=== PATIENT | female | born 1960 | race Caucasian/White ===

== ENCOUNTER 2017-01-01 13:00 | Inpatient (IN) | payer OTHER ==
[~2017-01-01] VITALS: Ht 160 cm; Wt 51.7 kg
--- NOTE | ~2017-01-01 | PN ---
Unit #: [id number] #: [id number] Patient: ANA MARÍA SUN [id number] [facility] [address] [place] [address] [id number] MR#: [id number] NAME: ANA MARÍA SUN ROOM: [facility]3 Age: 56 Sex: F Admission Date: 01/01/2017 : 1960 Attending Physician: Gabrielle Mcnulty M.D. Admitting Physician: Gabrielle Mcnulty M.D. Primary Care Physician: Primary Care Physician Vanesa MAR NOTES DATE OF SERVICE 01/16/2017 DISCUSSION Ms. Sun is a 56-year-old white female with mood disorder and psychosis who was seen today. Chart was reviewed and case was discussed with the staff. She remains anxious, withdrawn, disorganized, unkempt, disheveled, and rather seclusive to herself. Meanwhile, she has been taking the medications and tolerating them fairly well with no reported side effects. MENTAL STATUS EXAMINATION Middle-aged white female who is casually dressed with fair personal hygiene, appears to be in no acute distress or discomfort. She was awake and alert with impaired attention and concentration. Her mood is anxious with congruent affect. Speech is slow and restricted in content. Her thought processes were disorganized with some looseness of associations and paranoid ideations. Her insight and judgment remain significantly impaired. TREATMENT PLAN 1. We will continue her on her current medications and treatment protocol. We will monitor her response to the medications (1) __. 2. We will continue to follow up. Dictated by... Sudha Mayfield/ofelia TD: 01/18/2017 10:38 JOB #: [id number] Unit #: [id number] #: [id number] Patient: ANA MARÍA SUN PROGRESS NOTES Page 1 of 1 X Gabrielle Mcnulty MD PROGRESS NOTE
--- NOTE | ~2017-01-01 | PN ---
Unit #: [id number] #: [id number] Patient: ANA MARÍA SUN [id number] [facility] [address] [place] [address] [id number] MR#: [id number] NAME: ANA MARÍA SUN ROOM: P256 Age: 56 Sex: F Admission Date: 01/01/2017 : 1960 Attending Physician: Gabrielle Mcnulty M.D. Admitting Physician: Gabrielle Mcnulty M.D. Primary Care Physician: Primary Care Physician Vanesa MAR NOTES DATE OF SERVICE: 01/02/2017 SUBJECTIVE Ms. Sun is a 56-year-old white female who was seen today and chart was reviewed, and case was discussed with the staff. She has been anxious, withdrawn, and rather seclusive to herself. Meanwhile, she has been cooperative with treatment recommendation and has been taking medications and tolerating them fairly well with no reported side effects. MENTAL STATUS EXAMINATION Middle-aged white female who was casually dressed with fair personal hygiene, appears to be in no acute distress or discomfort. She was awake and alert on interaction with intact orientation. Her mood was anxious with a congruent affect. Her speech was slow and goal directed. She denies any suicidal or homicidal ideations. Her insight and judgment remain slightly impaired. TREATMENT PLAN 1. We will continue on her current medications and treatment protocol. We will monitor her response to the medications and make further adjustments as needed. 2. We will continue to follow up. Dictated by... Sudha Mayfield/conrado TD: 01/04/2017 00:11 JOB #: [id number] EMILY PROGRESS NOTES Page 1 of 1 X Gabrielle Mcnulty MD PROGRESS NOTE
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
--- NOTE | ~2017-01-01 | PN ---
Unit #: [id number] #: [id number] Patient: ANA MARÍA SUN [id number] [facility] [address] [place] [address] [id number] I MR#: [id number] NAME: ANA MARÍA SUN ROOM: [facility]3 Age: 56 Sex: F Admission Date: 01/01/2017 : 1960 Attending Physician: Gabrielle Mcnulty M.D. Admitting Physician: Gabrielle Mcnulty M.D. Primary Care Physician: Primary Care Physician Vanesa MAR NOTES DATE 01/06/2017 DISCUSSION Ms. Sun is a 56-year-old white female with mood disorder and psychosis who was seen today and chart was reviewed and case was discussed with the staff. She has been anxious, withdrawn and rather seclusive to himself. Meanwhile, she has been cooperative with treatment recommendations and has been taking medications and tolerating them fairly well with no reported side effects. MENTAL STATUS EXAMINATION Middle-aged white female who was casually dressed with fair personal hygiene and appears to be in no acute distress or discomfort. She was awake and alert with impaired attention and concentration. Her mood was elated with expansive affect. Speech was fluent and tangential. Her thought processes were disorganized with some looseness of associations, flight of ideas, paranoid ideations and delusions of grandiosity. Her insight and judgement remains significantly impaired. TREATMENT PLAN 1. Patient remains in acute manic phase with sexually inappropriate behavior and has not been showing a therapeutic response to the medication and had a rough day yesterday and as such will recommend further adjusting her medication. Will also consider her to be a candidate for long-acting injectable antipsychotic. 2. Will continue to follow up. Dictated by... Sudha Mayfield/ольга TD: 01/06/2017 19:37 JOB #: [id number] Unit #: [id number] #: [id number] Patient: ANA MARÍA SUN ZAID NOTES Page 1 of 1 X Gabrielle Mcnulty MD PROGRESS NOTE
--- NOTE | ~2017-01-01 | PN ---
Unit #: [id number] #: [id number] Patient: ANA MARÍA SUN [id number] [facility] [address] [place] [address] [id number] I MR#: [id number] NAME: ANA MARÍA SUN ROOM: P253 Age: 56 Sex: F Admission Date: 01/01/2017 : 1960 Attending Physician: Gabrielle Mcnulty M.D. Admitting Physician: Gabrielle Mcnulty M.D. Primary Care Physician: Primary Care Physician Vanesa MAR NOTES SUBJECTIVE Ms. Sun is a 56-year-old white female who was seen today and chart was reviewed, and case was discussed with the staff. She has been anxious, withdrawn, and rather seclusive to herself. Meanwhile, she has been cooperative with treatment recommendation and has been taking medications and tolerating them fairly well with no reported side effects. MENTAL STATUS EXAMINATION Middle-aged white female who was casually dressed with fair personal hygiene, appears to be in no acute distress or discomfort. She was awake and alert on interaction with intact orientation. Her mood was anxious with a congruent affect. Her thought processes were disorganized with some looseness of associations and flight of ideas. Her insight and judgment remain slightly impaired. TREATMENT PLAN 1. We will continue on her current medications and treatment protocol. We will monitor her response to the medications and make further adjustments as needed. 2. We will continue to follow up. Dictated by... Sudha Mayfield/celinel TD: 01/04/2017 09:57 JOB #: [id number] EMILY MAR NOTES Page 1 of 1 X Gabrielle Mcnulty MD PROGRESS NOTE
--- NOTE | ~2017-01-01 | FU ---
[facility] Nutrition Therapy DATE: 01/13/17 Patient: ANA MARÍA SUN Physician: AFAIRF Address: [address] [place] [address] Room/Bed: [address], Zip: [place] [address] Admit Date: 01/01/17 Date of : [birth year] Height: 5 3 Weight: [phone] NUTRITION MONITORING/FOLLOW-UP: Reason: NUTRITION F/U FOR 2 NUTRITIONAL RISK POINTS- UNINTENTIONAL WEIGHT LOSS, CHEWING/SWALLOWING DIFFICULTIES Anthropometrics: HT: 63", WT: 114# (NO NEW WEIGHT), BMI: 20.2 Labs: NO NEW LABS Meds: INVEGA SUSTENNA, DESYREL, BUSPAR, PAXIL Assessment: PATIENT CONTINUES WITH CONFUSION, DELUSIONAL AND BIZARRE BEHAVIORS, AND SHE IS UNABLE TO CARRY ON ANY MEANINGFUL CONVERSATION. PATIENT'S URINE WAS POSITIVE FOR UTI AND SHE WAS STARTED ON BACTRIM. NURSING REPORTS CONSISTENTLY GOOD PO INTAKES. PATIENT IS ON A REGULAR DIET WITH NO CAFFEINE. THERE ARE NO SKIN OR GI ISSUES NOTED ATT. Dx: UNINTENTIONAL WEIGHT LOSS R/T CURRENT CONDITION, PSYCHOSIS AEB SELF-REPORTED WEIGHT LOSS AND DECREASED APPETITE, 2 NUTRITIONAL RISK POINTS - IMPROVED! NO C/O CHEWING/SWALLOWING DIFFICULTIES, GOOD APPETITE Intervention: REGULAR DIET, NO CAFFEINE, MEDS PER MD, PSYCH Monitoring, Evaluation and Goals: 1. ADEQUATE PO INTAKES >50% OF MEALS - GOAL MET 2. PREVENT, CORRECT MICRO/MACRO NUTRIENT DEFICIENCIES - ONGOING, NO NEW LABS! 3. WEIGHT; MAINTAIN CURRENT WEIGHT, PREVENT FURTHER LOSS- ONGOING, NO NEW WEIGHTS MONITOR: WEIGHTS, LABS, PO/FLUID INTAKES Recommendations: 1. CONTINUE REGULAR DIET WITH NO CAFFEINE AND OFFERING SNACKS BETWEEN MEALS 2. CONTINUE TO ENCOURAGE ADEQUATE PO AND FLUID INTAKES 3. OBTAIN NEW WEIGHT. NO NEW WEIGHT OBTAINED SINCE ADMIT! CONTINUE TO OBTAIN WEIGHTS ROUTINELY RD TO F/U PER PROTOCOL AND PRN R/T PATIENT NOT AT NUTRITIONAL RISK ATT Status: Respectfully, [facility] Therapy DATE: 01/13/17 Patient: ANA MARÍA SUN Physician: LYNDSEYF Address: [address] [place] [address] Room/Bed: [address], Zip: [place] [address] Admit Date: 01/01/17 Date of : [birth year] Height: 5 3 Weight: [id number], LD [facility] cc: client file
--- NOTE | ~2017-01-01 | PA ---
Unit #: [id number] #: [id number] Patient: ANA MARÍA COMER [id number] [facility] [address] [place] [address] [id number] I MR#: [id number] NAME: ANA MARÍA COMER ROOM: 79 Age: 56 Sex: F Admission Date: 01/01/2017 : 1960 Date of Assessment: 01/01/2017 Attending Physician: Gabrielle Mcnulty M.D. Admitting Physician: Gabrielle Mcnulty M.D. Primary Care Physician: Primary Care Physician No PSYCHIATRIC ASSESSMENT DATE OF SERVICE 01/01/2017. IDENTIFYING DATA Ms. Comer is a 56-year-old single white female, who is a resident of [place], [place], and was self-referred to the hospital and was accompanied by her children. CHIEF COMPLAINT "I'm just not feeling good, I feel lonely and scared and scared to ." HISTORY OF PRESENT ILLNESS Ms. Comer is a 56-year-old white female, who was brought to the hospital by her children with increasing depression and feeling lonely and scared, "I don't know, I'm scared of everything." The patient's son and daughter stated that she has had a change in mental status and we took her to the hospital last Tuesday and they checked her out for UTI and she also has had some falls lately before we took her to the hospital. Upon a month ago, she fell and had a concussion and a few days later, she went to her neighbor's half dressed and she had an empty shopping cart and told the neighbor that the cart was full of groceries and she went to the neighbor again and told him that she has groceries and she thought that she was at an [employer] last time we took her to the hospital. There have been several incidents like this that seem to be a result of hallucinations, "I came home one night and she thought that she was in labor and trying to have a baby with feet in stirrups and pushing." The patient was seen to be acutely psychotic, confused, disorganized and with acute mental status changes and as such, a recommendation for inpatient level of care for safety and stabilization was made and the patient was stepped up to the inpatient unit. SUBSTANCE ABUSE HISTORY The patient denies any alcohol or drug abuse. PAST PSYCHIATRIC HISTORY The patient has had a history of multiple inpatient psychiatric hospitalizations including being at [facility] and at [facility] and has had outpatient treatment at [facility] as well. Review of the medical records indicate that she has been diagnosed and treated for bipolar disorder and is supposed to be on Seroquel, BuSpar, perphenazine, benztropine, and paroxetine, but does not appear to be showing therapeutic response to medications. Unit #: [id number] #: [id number] Patient: ANA MARÍA COMER PAST MEDICAL HISTORY COPD and hypertension. ALLERGIES No known medication allergies. PERSONAL AND SOCIAL HISTORY A 56-year-old white female, who reports that she is single and unemployed and lives with her son and daughter and has fairly decent social support system. MENTAL STATUS EXAMINATION Middle-aged white female, who was casually dressed with fair personal hygiene, appears to be in no acute distress or discomfort. She was awake and alert on interaction with intact orientation to time, place, and person. Her mood was anxious and depressed with a congruent affect. Her speech was slow and restricted in content. Her thought processes were disorganized with some looseness of associations and paranoid ideations and auditory and visual hallucinations. Her insight and judgment remain significantly impaired. DIAGNOSTIC IMPRESSION Psychiatric: Chronic paranoid schizophrenia by history. Medical: Asthma and chronic obstructive pulmonary disease. Stressors: Moderate psychosocial stressors. TREATMENT PLAN 1. The patient has presented with a history of mood disorder and has been decompensating and will need inpatient hospitalization for safety and stabilization. We will start her back on her home medications and we will adjust the medications and monitor response. 2. Supportive therapy was provided to the patient. 3. Safe, structured, and nourishing environment will be provided. ESTIMATED LENGTH OF STAY 5 to 7 days. ABILITY TO HELP SELF Limited. WILLINGNESS TO HELP SELF The patient appears to be willing to help self. STRENGTHS 1. Communicative. 2. Cooperative. PROBLEMS Chronic dysphoric symptoms. DISCHARGE CRITERIA This will be contingent upon the patient's ability to show resolution of her depression and anxiety and her ability to stay safe to herself and others, particularly after discharge from the hospital. Dictated by... Unit #: [id number] #: [id number] Patient: ANA MARÍA COMER Sudha Mayfield/conrado TD: 01/02/2017 20:20 JOB #: [id number] PSYCHIATRIC ASSESSMENT Page 1 of 1 X Gabrielle Mcnulty MD PSYCHIATRIC ASSESSMENT
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
--- NOTE | ~2017-01-01 | PN ---
Unit #: [id number] #: [id number] Patient: ANA MARÍA SUN [id number] [facility] [address] [place] [address] [id number] MR#: [id number] NAME: ANA MARÍA SUN ROOM: [facility]3 Age: 56 Sex: F Admission Date: 01/01/2017 : 1960 Attending Physician: Gabrielle Mcnulty M.D. Admitting Physician: Gabrielle Mcnulty M.D. Primary Care Physician: Primary Care Physician Vanesa DIAZ PROGRESS NOTES DATE 01/15/2017 DISCUSSION Ms. Sun is a 56-year-old white female who was seen today and chart was reviewed and case was discussed with the staff. She has been anxious, withdrawn and rather seclusive to herself. Meanwhile, she has been cooperative with treatment recommendations and has been taking medications and tolerating them fairly well with no side effects. MENTAL STATUS EXAMINATION Middle-aged white female who was casually dressed with fair personal hygiene and appears to be in no acute distress or discomfort. She was awake and alert on interaction with intact orientation. Her mood was anxious with congruent affect. She denies any suicidal or homicidal ideations and also denies any auditory or visual hallucinations. Her insight and judgement remains slightly impaired. TREATMENT PLAN Will continue on current medications and treatment protocol. Will monitor her response and make further adjustments as needed. Dictated by... Sudha Mayfield/ольга TD: 01/15/2017 16:22 JOB #: [id number] Unit #: [id number] #: [id number] Patient: ANA MARÍA SUN PROGRESS NOTES Page 1 of 1 X Gabrielle Mcnulty MD PROGRESS NOTE
--- NOTE | ~2017-01-01 | PN ---
Unit #: [id number] #: [id number] Patient: ANA MARÍA SUN [id number] [facility] [address] [place] [address] [id number] I MR#: [id number] NAME: ANA MARÍA SUN ROOM: P256 Age: 56 Sex: F Admission Date: 01/01/2017 : 1960 Attending Physician: Gabrielle Mcnulty M.D. Admitting Physician: Gabrielle Mcnulty M.D. Primary Care Physician: Primary Care Physician Vanesa MAR NOTES DATE January 03, 2017 DISCUSSION Ms. Sun is a 56-year-old white female, who was seen today and chart was reviewed and the case was discussed with the staff. She laying in her bed and was able to wake up and talk to me and was seen to have fluent speech and moving from one subject to another, was confused and disorganized and could not tell me what day of the week or month it was and then moving from one tangent to another, and then started to reporting to me that she "messed up." She also made the statement, "I need to be fixed." She then got up and stated that, "I need to get in the bathroom." Overall, she was seen to be quite disorganized and unable to carry on any meaningful conversation. MENTAL STATUS EXAMINATION Middle-aged white female, who was casually dressed with fair personal hygiene and appears to be in no acute distress or discomfort. The patient was awake and alert with impaired attention and concentration. Her mood was anxious with a congruent affect. Speech is smooth and tangential. Her thought processes are disorganized with some looseness of associations and flight of ideas, paranoid ideations. Her insight and judgment remain significantly impaired. TREATMENT PLAN 1. We will continue her on her current medications and treatment protocol, and will monitor her response to the medications, and make further adjustments as needed. 2. We will continue to followup. Dictated by... Sudha Mayfield/patricio TD: 01/04/2017 05:38 JOB #: [id number] Unit #: [id number] #: [id number] Patient: ANA MARÍA SUN PROGRESS NOTES Page 1 of 1 X Gabrielle Mcnulty MD NOTE
--- NOTE | ~2017-01-01 | PN ---
Unit #: [id number] #: [id number] Patient: ANA MARÍA SUN [id number] [facility] [address] [place] [address] [id number] I MR#: [id number] NAME: ANA MARÍA SUN ROOM: [facility]3 Age: 56 Sex: F Admission Date: 01/01/2017 : 1960 Attending Physician: Gabrielle Mcnulty M.D. Admitting Physician: Gabrielle Mcnulty M.D. Primary Care Physician: Primary Care Physician Vanesa DIAZ PROGRESS NOTES DATE 01/08/2017 DISCUSSION Ms. Sun is a 56-year-old white female with mood disorder and psychosis who was seen today and chart was reviewed and case was discussed with the staff. She was seen to exhibiting very bizarre behavior and has been unkempt, disheveled and has not been able to carry on meaningful conversation and appears to be out of touch with reality with associations and flight of ideas. Meanwhile, no agitation or aggression has been noted. MENTAL STATUS EXAMINATION Middle-aged white female who was casually dressed with fair personal hygiene and appears to be in no acute distress or discomfort. She was awake and alert with impaired attention and concentration. Her mood was anxious with congruent affect. Her speech is slow and tangential. Her thought processes were disorganized with some looseness of associations and flight of ideas. Her insight and judgement remains significantly impaired. TREATMENT PLAN Will continue on current medications and treatment protocol. Will monitor her response and make further adjustments as needed. Dictated by... Sudha Mayfield/ольга TD: 01/08/2017 17:34 JOB #: [id number] Unit #: [id number] #: [id number] Patient: ANA MARÍA SUN PROGRESS NOTES Page 1 of 1 X Gabrielle Mcnulty MD PROGRESS NOTE
--- NOTE | ~2017-01-01 | CO ---
Unit #: [id number] #: [id number] Patient: ANA MARÍA SUN [id number] [facility] [place] [address] [id number] I MR#: [id number] NAME: ANA MARÍA SUN ROOM: [facility]3 Age: 56 Sex: F Admission Date: 01/01/2017 : 1960 Attending Physician: Gabrielle Mcnulty M.D. Primary Care Physician: Primary Care Physician No Consultation Date: 01/04/2017 CONSULTATION REPORT NADIR Pichardo is a 56-year-old with abnormal urinalysis on admission. She has no complaints of urgency, frequency, or dysuria. Admission urinalysis showed 1+ bacteria and 25 to 50 wbc's. On examination, abdomen was soft and nontender. Negative CVA tenderness. We will start Bactrim DS one p.o. b.i.d. x3 days. Dictated by... Cassidy JordanADelilah for Sudha Limon/conrado TD: 01/04/2017 16:16 JOB #: [id number] CONSULTATION REPORT Page 1 of 1 X Beth Keith CONSULTATION REPORT
--- NOTE | ~2017-01-01 | PN ---
Unit #: [id number] #: [id number] Patient: ANA MARÍA SUN [id number] [facility] [address] [place] [address] [id number] I MR#: [id number] NAME: ANA MARÍA SUN ROOM: [facility] Age: 56 Sex: F Admission Date: 01/01/2017 : 1960 Attending Physician: Gabrielle Mcnulty M.D. Admitting Physician: Gabrielle Mcnulty M.D. Primary Care Physician: Primary Care Physician Vanesa MAR NOTES DATE January 12, 2017 DISCUSSION Ms. Sun is a 56-year-old white female, who was seen today and chart was reviewed and the case was discussed with the staff. She remains anxious, withdrawn, disorganized, unkept, and disheveled, and seclusive to herself with poor personal hygiene, and apparently she has been urinating on herself and has significant odor and she has been moved into a private room where she has not been able to carry on any meaningful conversation and she appears to be out of touch with reality, (1)____ paranoia, and looseness of associations. MENTAL STATUS EXAMINATION Middle-aged white female, who was casually dressed with marginal personal hygiene and appears to be in no acute distress or discomfort. She was awake and alert with impaired attention and concentration. Her mood was anxious with a congruent affect. Her speech is slow and tangential. Her thought processes are disorganized with some looseness of associations and flight of ideas, paranoid ideations, and delusional behavior. Her insight and judgment remain significantly impaired. TREATMENT PLAN 1. We will continue her on her current medications and treatment protocol, and will monitor her response to the medications, and make further adjustments as needed. 2. We will continue to followup. Dictated by... Sudha Mayfield/patricio TD: 01/12/2017 12:32 JOB #: [id number] Unit #: [id number] #: [id number] Patient: ANA MARÍA SUN PROGRESS NOTES Page 1 of 1 X Gabrielle Mcnulty A MD X PROGRESS NOTE
--- NOTE | ~2017-01-01 | A ---
[facility] Nutrition Therapy DATE: 01/03/17 Patient: ANA MARÍA SUN Physician: STANFORD Address: [address] Room/Bed: [address], Zip: [place] [address] Admit Date: 01/01/17 Date of : [birth year] Height: 5 3 Weight: [phone] NUTRITIONAL ASSESSMENT: REASON: 2 NUTRITIONAL RISK POINTS: UNINTENTIONAL WEIGHT LOSS, CHEWING/SWALLOWING DIFFICULTIES PATIENT ADMITTED FOR PSYCHOSIS AND A/V HALLUCINATIONS PMH: HTN, COPD Anthropometrics: HT: 63", WT: 114#, BMI: 20.2 Labs: 01/02/17- BUN:6, ALL OTHER NUTRITION LABS WNL Meds: RISPERDAL, DESYREL, BUSPAR, PAXIL Assessment: PATIENT IS A 56 Y/O FEMALE ADMITTED FOR PSYCHOSIS AND A/V HALLUCINATIONS. PATIENT IS ON DISABILITY, LIVES WITH HER DAUGHTER FOR LAST 3 WEEKS, SMOKES 2-3 PPD, AND HAS DAILY ETOH USE. SHE IS CURRENTLY NOTED TO BE VERY CONFUSED AND SHE HAS A HX OF INPATIENT PSYCH AND CHEMICAL DEPENDENCY TREATMENT. PER FAMILY PATIENT HAS A POOR APPETITE WITH A 15# WEIGHT LOSS X WEEKS, SHE WILL FORGET TO EAT, AND SHE HAS BEEN SLEEPING 5HRS/NIGHT ON AVERAGE. WEIGHT HX PER [facility] SHOWS PATIENT'S WEIGHT WAS 118# 2 YEARS AGO. NURSING REPORTS POOR PO INTAKES UPON ADMIT AND SHE HAD GOOD PO INTAKES YESTERDAY AFTERNOON. CURRENT PSYCH MEDS MAY CAUSE WEIGHT AND APPETITE FLUCTUATIONS. PATIENT'S BMI IS WITHIN A HEALTHY RANGE AND HER NUTRITION LABS WERE ESSENTIALLY ALL WNL. THERE ARE NO SKIN OR GI ISSUES NOTED ATT, HOWEVER PATIENT HAS BEEN FALLING RECENTLY. PATIENT SCORED A RISK POINT FOR CHEWING AND SWALLOWING DIFFICULTIES. SHE CURRENTLY HAS DENTURES, IS ON A REGULAR DIET WITH NO CAFFEINE, AND THERE ARE NO CURRENT COMPLAINTS OF CHEWING OR SWALLOWING DIFFICULTIES. PATIENT IS INAPPROPRIATE FOR INTERVIEW ATT D/T ADMITTING DIAGNOSES. Dx: UNINTENTIONAL WEIGHT LOSS R/T CURRENT CONDITION, PSYCHOSIS AEB SELF-REPORTED WEIGHT LOSS AND DECREASED APPETITE, 2 NUTRITIONAL RISK POINTS Intervention: REGULAR DIET, NO CAFFEINE, MEDS PER MD, PSYCH Monitoring, Evaluation and Goals: 1. ADEQUATE PO INTAKES >50% OF MEALS 2. PREVENT, CORRECT MICRO/MACRO NUTRIENT DEFICIENCIES 3. WEIGHT; MAINTAIN CURRENT WEIGHT, PREVENT FURTHER WEIGHT LOSS MONITOR: WEIGHTS, LABS, PO/FLUID INTAKES [facility] Nutrition Therapy DATE: 01/03/17 Patient: ANA MARÍA SUN Physician: STANFORD Address: [address] [place] [address] [address] Room/Bed: P1791 [facility], Zip: [place] [address] Admit Date: 01/01/17 Date of : [birth year] Height: 5 3 Weight: [phone] Recommendations: 1. CONTINUE REGULAR DIET WITH NO CAFFEINE TOLERATED. OFFER SNACKS BETWEEN MEALS 2. ENCOURAGE ADEQUATE PO AND FLUID INTAKES 3. OBTAIN WEIGHTS ROUTINELY (EVERY 3-4 DAYS) 4. IF PO INTAKES ARE BELOW 50% OF MEALS PLEASE ORDER ENSURE BID TO PROMOTE ADEQUATE KCAL AND PROTEIN INTAKES RD TO F/U PER PROTOCOL AND PRN R/T PATIENT MILDLY COMPROMISED Respectfully, BEN TINOCO, LADI, LD [employer] [facility] [employer] cc: client file
--- NOTE | ~2017-01-01 | HP ---
Unit #: [id number] #: [id number] Patient: ANA MARÍA SUN [id number] [place] [address] [id number] I MR#: [id number] NAME: ANA MARÍA SUN ROOM: 79 Age: 56 Sex: F Admission Date: 01/01/2017 : 1960 Attending Physician: Gabrielle Mcnulty M.D. Admitting Physician: Gabrielle Mcnulty M.D. Primary Care Physician: Primary Care Physician No HISTORY AND PHYSICAL HISTORY OF PRESENT ILLNESS The patient is a 56-year-old female admitted to [facility] on 01/01/2017 for psychosis. Patient was actively psychotic when I came into the room and refused to speak to me or to let me do an examination. Some information was retrieved the chart. PAST MEDICAL HISTORY 1. COPD 2. MR 3. Hypertension PAST SURGICAL HISTORY Unknown. SOCIAL HISTORY She is disabled. She lives with her daughter. Smokes two to three packs of cigarettes daily and drinks six to twelve beers per day. FAMILY MEDICAL HISTORY Noncontributory. ALLERGIES Penicillin. CURRENT MEDICATIONS Trazodone, Seroquel, vistaril, BuSpar, perphenazine, benztropine, Paxil and Ventolin. REVIEW OF SYSTEMS Unable to obtain. PHYSICAL EXAM GENERAL: She is awake and alert in no acute distress. VITAL SIGNS: Temperature 97.7, heart rate 105, respiration 16, blood pressure 136/91. HEIGHT: 5'3". WEIGHT: 114 pounds. Remainder of examination was deferred. IMPRESSION 1. Psychiatric admission. Unit #: [id number] #: [id number] Patient: ANA MARÍA SUN 2. COPD. 3. MR. 4. Hypertension. RECOMMENDATIONS Psychiatric per psychiatrist. MEDICAL: No contraindication to participate in facility activities. MEDICAL PROGNOSIS Fair. MEDICAL CONDITION Stable. Dictated by... Patrizia Garcias/almas TD: 01/03/2017 00:19 JOB #: [id number] HISTORY AND PHYSICAL Page 1 of 1 X AR ROMAN APRN X HISTORY AND PHYSICAL
--- NOTE | ~2017-01-01 | PN ---
Unit #: [id number] #: [id number] Patient: ANA MARÍA SUN [id number] [facility] [address] [place] [address] [id number] MR#: [id number] NAME: ANA MARÍA SUN ROOM: [facility] Age: 56 Sex: F Admission Date: 01/01/2017 : 1960 Attending Physician: Gabrielle Mcnulty M.D. Admitting Physician: Gabrielle Mcnulty M.D. Primary Care Physician: Primary Care Physician Vanesa MAR NOTES DATE January 09, 2017 DISCUSSION Ms. Sun is a 56-year-old white female with mood disorder, and polysubstance abuse, who was seen today and chart was reviewed and the case was discussed with the staff. She has been anxious, withdrawn, and rather seclusive to herself. Meanwhile, she has been cooperative with the treatment recommendations and she has been taking the medications and tolerating them fairly well with no reported side effects. MENTAL STATUS EXAMINATION Middle-aged white female, who was casually dressed with fair personal hygiene and appears to be in no acute distress or discomfort. She was awake and alert with impaired attention and concentration. Her mood is anxious with a congruent affect. She denies any suicidal or homicidal ideations. Her thought processes are disorganized with some looseness of associations and paranoid ideations. Her insight and judgment remain significantly impaired. TREATMENT PLAN 1. We will continue her on her current medications and treatment protocol, and will monitor her response to the medications, and make further adjustments as needed. 2. We will continue to followup. Dictated by... Sudha Mayfield/patricio TD: 01/10/2017 06:01 JOB #: [id number] Unit #: [id number] #: [id number] Patient: ANA MARÍA SUN PROGRESS NOTES Page 1 of 1 X Gabrielle Mcnulty MD PROGRESS NOTE
--- NOTE | ~2017-01-01 | PN ---
Unit #: [id number] #: [id number] Patient: ANA MARÍA SUN [id number] [facility] [address] [place] [address] [id number] I MR#: [id number] NAME: ANA MARÍA SUN ROOM: P253 Age: 56 Sex: F Admission Date: 01/01/2017 : 1960 Attending Physician: Gabrielle Mcnulty M.D. Admitting Physician: Gabrielle Mcnulty M.D. Primary Care Physician: Primary Care Physician Vanesa DIAZ PROGRESS NOTES DATE 01/05/2017 DISCUSSION Ms. Sun is a 56-year-old white female who was seen today and chart was reviewed and case was discussed with the staff. She was laying in her bed and she got up and sat down on the bed when I answered and was seen to be rather restless and bizarre and in elated mood and once again started talking to me about being to Stephan Pearson and I asked her how long they have been and she said that they have been together for 55 years and then she all of a sudden and straight to me and hugged me and started kissing me and I had to really push her back and not kiss me on lips and she started kissing me on my neck and I had to push her away and walk out of there and appears to be quite compromised in a manic phase with disorganized thought, speech and behavior and persistent confusion and grandiosity and delusional behavior and as such we will recommend maintaining her on her current medications and we will monitor her response to the medication and make further adjustments as needed. Dictated by... Sudha Mayfield/almas TD: 01/05/2017 23:42 JOB #: [id number] EMILY PROGRESS NOTES Page 1 of 1 X Gabrielle Mcnulty MD PROGRESS NOTE
--- NOTE | ~2017-01-01 | PN ---
Unit #: [id number] #: [id number] Patient: ANA MARÍA SUN [id number] [facility] [address] [place] [address] [id number] I MR#: [id number] NAME: ANA MARÍA SUN ROOM: [facility]2 Age: 56 Sex: F Admission Date: 01/01/2017 : 1960 Attending Physician: Gabrielle Mcnulty M.D. Admitting Physician: Gabrielle Mcnulty M.D. Primary Care Physician: Primary Care Physician Vanesa DIAZ PROGRESS NOTES DATE OF SERVICE: 01/17/2017 SUBJECTIVE Ms. Sun is a 56-year-old white female, who was seen today and chart was reviewed, and case was discussed with the staff. She has been anxious, withdrawn, and rather seclusive to herself. Meanwhile, she has been cooperative with treatment recommendation and has been taking medications and tolerating them fairly well with no reported side effects. MENTAL STATUS EXAMINATION Middle-aged white female who was casually dressed with fair personal hygiene, appears to be in no acute distress or discomfort. She was awake and alert on interaction with intact orientation. Her mood was anxious with a congruent affect. Her speech was slow and goal directed. She denies any suicidal or homicidal ideation and also denies any auditory or visual hallucinations. Her insight and judgment remain slightly impaired. TREATMENT PLAN 1. We will continue on current medications and treatment protocol. We will monitor her response to medications and make further adjustments as needed. 2. We will continue to follow up. Dictated by... Sudha Mayfield/conrado TD: 01/18/2017 23:29 JOB #: [id number] Unit #: [id number] #: [id number] Patient: ANA MARÍA SUN PROGRESS NOTES Page 1 of 1 X Gabrielle Mcnulty MD PROGRESS NOTE
--- NOTE | ~2017-01-01 | PN ---
Unit #: [id number] #: [id number] Patient: ANA MARÍA SUN [id number] [facility] [address] [place] [address] [id number] MR#: [id number] NAME: ANA MARÍA USN ROOM: [facility]3 Age: 56 Sex: F Admission Date: 01/01/2017 : 1960 Attending Physician: Gabrielle Mcnulty M.D. Admitting Physician: Gabrielle Mcnulty M.D. Primary Care Physician: Primary Care Physician Vanesa MAR NOTES DATE 01/18/2017 DISCUSSION Ms. Sun is a 56-year-old white female who was seen today and chart was reviewed and case was discussed with the staff. She has been anxious, withdrawn and rather seclusive to herself though has not shown any agitation and aggression though has been settling down quietly and stays to herself. Meanwhile, she has been taking medications and tolerating them fairly well and has received both a loading dose of Invega Sustenna without any tolerability issues. MENTAL STATUS EXAMINATION Middle-aged white female who was casually dressed with fair personal hygiene, appears to be in no acute distress or discomfort. She was awake and alert with impaired attention and concentration. Her mood was anxious with current affect. Her speech was slow and restricted on content. Her thought processes were disorganized with some looseness of associations and paranoid ideations. Her insight and judgement remains significantly impaired. TREATMENT PLAN 1. We will continue her on her current medications and treatment protocol. We will monitor her response to the medication and make further adjustments as needed. 2. We will continue to follow up. Dictated by... Sudha Mayfield/almas TD: 01/18/2017 22:19 JOB #: [id number] Unit #: [id number] #: [id number] Patient: ANA MARÍA SUN ZAID NOTES Page 1 of 1 X Gabrielle Mcnulty MD PROGRESS NOTE
--- NOTE | ~2017-01-01 | PN ---
Unit #: [id number] #: [id number] Patient: ANA MARÍA SUN [id number] [facility] [address] [place] [address] [id number] I MR#: [id number] NAME: ANA MARÍA SUN ROOM: [facility] Age: 56 Sex: F Admission Date: 01/01/2017 : 1960 Attending Physician: Gabrielle Mcnulty M.D. Admitting Physician: Gabrielle Mcnulty M.D. Primary Care Physician: Primary Care Physician Vanesa DIAZ PROGRESS NOTES DATE January 13, 2017 DISCUSSION Ms. Sun is a 56-year-old white female, who was seen today and chart was reviewed and the case was discussed with the staff who reports that the patient has remained acutely psychotic with bizarre behavior and has not been functioning very well and is completely out of touch with reality. She has different layers of clothing all upside down and she has underwear on top of her pants and had yesterday her bra on her legs. She has been wondering in and out of other patient's rooms and wondered into the medicine cabinet and sat on the floor and was difficult to be redirected and removed. She has been using word salad and has not been able to get any meaningful conversation. Her family is concerned about her inability to function and take care of herself and bizarreness of her behavior and with some significant confusion even though the medical workup has been unremarkable and the family has been looking into possible intermediate placement. Meanwhile, she has been started on Invega Sustenna, long-acting injectable antipsychotic and she has received her first loading dose and is due to receive her second loading dose tomorrow and will anticipate therapeutic response while she has received both loading dose. MENTAL STATUS EXAMINATION An elderly white female, who was casually dressed with fair personal hygiene and appears to be in no acute distress or discomfort. The patient was awake and alert with impaired attention and concentration. Her mood was anxious with a congruent affect. Her speech is slow and tangential. Her thought processes are disorganized with some looseness of associations and flight of ideas, and paranoid ideations, and delusional behavior. Her insight and judgment remain significantly impaired. TREATMENT PLAN 1. We will continue her on her current medications and treatment protocol, and will monitor her response to the medications, and make further adjustments as needed. 2. We will continue to followup. Dictated by... Gabrielle Mcnulty M.D. Unit #: [id number] #: [id number] Patient: ANA MARÍA SUN SAGAR/patricio TD: 01/13/2017 11:39 JOB #: [id number] EMILY PROGRESS NOTES Page 1 of 1 X Gabrielle Mcnulty MD X PROGRESS NOTE
--- NOTE | ~2017-01-01 | PN ---
Unit #: [id number] #: [id number] Patient: ANA MARÍA SUN [id number] [facility] [address] [place] [address] [id number] I MR#: [id number] NAME: ANA MARÍA SUN ROOM: [facility]3 Age: 56 Sex: F Admission Date: 01/01/2017 : 1960 Attending Physician: Gabrielle Mcnulty M.D. Admitting Physician: Gabrielle Mcnulty M.D. Primary Care Physician: Primary Care Physician Vanesa MAR NOTES DATE 01/11/2017 DISCUSSION Ms. Sun is a 56-year-old white female with mood disorder and psychosis who was seen today and chart was reviewed and case was discussed with the staff. She remains anxious, withdrawn and rather seclusive to herself. Meanwhile, she has been cooperative with treatment recommendations. She has been taking the medications and tolerating them fairly well with no reported side effects. MENTAL STATUS EXAMINATION Middle-aged white female who was casually dressed with fair personal hygiene, appears to be in no acute distress or discomfort. She was awake and alert with impaired attention and concentration. Her mood was anxious with congruent affect. She denies any suicidal or homicidal ideations. Her insight and judgement remains slightly impaired. TREATMENT PLAN 1. We will continue her on her current medications and treatment protocol. We will monitor her response to the medication and make further adjustments as needed. 2. We will continue to follow up. Dictated by... Sudha Mayfield/almas TD: 01/11/2017 22:56 JOB #: [id number] Unit #: [id number] #: [id number] Patient: ANA MARÍA SUN PROGRESS NOTES Page 1 of 1 X Gabrielle Mcnulty MD PROGRESS NOTE
--- NOTE | ~2017-01-01 | PN ---
Unit #: [id number] #: [id number] Patient: ANA MARÍA SUN [id number] [facility] [address] [place] [address] [id number] I MR#: [id number] NAME: ANA MARÍA SUN ROOM: [facility]3 Age: 56 Sex: F Admission Date: 01/01/2017 : 1960 Attending Physician: Gabrielle Mcnulty M.D. Admitting Physician: Gabrielle Mcnulty M.D. Primary Care Physician: Primary Care Physician Vanesa DIAZ PROGRESS NOTES DATE OF SERVICE 01/07/2017 DISCUSSION Ms. Pichardo is a 56-year-old white female with mood disorder and psychosis who was seen today. Chart was reviewed and case was discussed with the staff. She appears to be settling down particularly with adjustments in her medication and is not seen to be agitated and remains confused, disorganized, and unable to carry on any meaningful conversation. MENTAL STATUS EXAMINATION Middle-aged white female who is casually dressed with fair personal hygiene, appears to be in no acute distress or discomfort. She was awake and alert with impaired attention and concentration. Her mood is anxious with congruent affect. Her speech is slow and restricted in content. She denies any suicidal or homicidal ideations and also denies any auditory or visual hallucinations. Her insight and judgment remain slightly impaired. TREATMENT PLAN 1. We will continue her on her current medications and treatment protocol. We will monitor her response to the medications and make further adjustments as needed. 2. We will continue to follow up. Dictated by... Gabrielle Mcnulty M.D. IAA/sharig TD: 01/07/2017 11:15 JOB #: [id number] Unit #: [id number] #: [id number] Patient: ANA MARÍA SUN PROGRESS NOTES Page 1 of 1 X Gabrielle Mcnulty MD PROGRESS NOTE
[2017-01-02 11:11] LABS: ALBUMIN SERUM 3.7 g/dL (3.5-5.0); BILIRUBIN,TOTAL 0.9 mg/dL (0.2-2.0); BUN/CREATININE RATIO 8.57; CALCIUM SERUM 9.8 mg/dL (8.4-10.2); CREATININE SERUM 0.7 mg/dL (0.6-1.4); GLOM FILT RATE Estimated 97.5 mL/min (>60); POTASSIUM 4.6 mmol/L (3.5-5.1); PROTEIN TOTAL SERUM 6.5 g/dL (6.0-8.3)
[2017-01-02 11:21] LABS: BASOPHIL# 0.1 X10e3 (0-0.3); BASOPHIL% 2.7 % (0-2.5); EOSINOPHIL# 0.3 X10e3 (0-0.7); HEMATOCRIT 38.4 % (35.0-45.0); HEMOGLOBIN 13.3 gm/dL (12.0-16.0); LYMPHOCYTE# 1.6 X10e3 (1.0-3.5); LYMPHOCYTE% 30.6 % (17.0-45.0); MEAN CELL VOLUME 89.1 FL (83-96); MEAN CORPUSCULAR HEMOGLOBIN 30.8 PG (28-34); MEAN CORPUSCULAR HGB CONC 34.5 g/dL (30-36); MONOCYTE# 0.6 X10e3 (0-1.0); MONOCYTE% 10.9 % (3.0-12.0); NEUTROPHIL# 2.6 X10e3 (1.5-7.1); NEUTROPHIL% 49.8 % (40-75); PLATELET COUNT 331 X10e3 (140-420); RED BLOOD COUNT 4.31 X10e (3.90-5.30); WHITE BLOOD COUNT 5.1 X10e3 (4.0-10.5)
[2017-01-02 11:50] LABS: DIFF IND NO
[2017-01-02 12:41] LABS: URINE APPEARANCE CLEAR; URINE BILIRUBIN NEG (NEG); URINE BLOOD NEG (NEG); URINE COLOR YELLOW; URINE GLUCOSE NEG (NEG); URINE KETONE NEG (NEG); URINE LEUKOCYTE ESTERASE 3+ (NEG); URINE NITRATE NEG (NEG); URINE PROTEIN NEG (NEG)
[2017-01-02 12:45] LABS: U HYALINE CASTS AUWI 0-2 /[LPF]; URBCS1 AUWI 0-2 /[HPF] (0-2); URINE BACTERIA AUWI 1+ (NEGATIVE); URINE SQUAMOUS EPITHELIAL CELL OCC /[HPF]; UWBCS1 AUWI 25-50 (0-5)
[2017-01-02 13:09] LABS: AMPHETAMINE NEG (NEG); BARBITURATES NEG (NEG); BENZODIAZEPINES NEG (NEG); COCAINE NEG (NEG); MARIJUANA NEG (NEG); OPIATES NEG (NEG); TRICYCLIC ANTIDEPRESSANTS POS (NEG); U METHADONE NEG (NEG)
== END 2017-01-19 15:15 | disposition home or self-care (01) | DRG 885 ==
LOC: P1E 15:19 → P1S 15:19 → P2L 15:19 → P1E 23:31 → P2L 01-03 18:51 → POF 01-06 13:04 → P1S 01-06 13:05
PROVIDERS: Psychiatry & Neurology Psychiatry
DX: F20.0 Paranoid schizophrenia (principal); I10 Essential (primary) hypertension; J44.9 Chronic obstructive pulmonary disease, unspecified; F17.210 Nicotine dependence, cigarettes, uncomplicated; Z88.0 Allergy status to penicillin; R82.71 Bacteriuria
CPT/HCPCS: 80053; 80307; 81003; 85025